=== PATIENT | male | born 1995 | race Caucasian/White ===

== ENCOUNTER 2022-03-03 17:54 | Emergency (ER) | payer BC ==
[2022-03-03] MEDS ORDERED: Sodium Chloride 0.9% 10 ML Syringe FLUSH PRN (17:58)
[2022-03-03] MEDS ORDERED: Glucagon,Human Recombinant 1 MG Vial IM ONE ×2 (17:58→18:39)
== END 2022-03-03 19:14 | disposition home or self-care (01) ==
LOC: VM.ED 17:54
DX: T17.228A Food in pharynx causing other injury, initial encounter (principal); Z88.0 Allergy status to penicillin
CPT/HCPCS: 96372; 99283; J1610; J3490